=== PATIENT | female | born 1950 ===

== ENCOUNTER 2020-05-15 06:30 | Day surgery (SDC) | payer OTHER | END 2020-05-15 10:10 | disposition home or self-care (01) | LOC: AMB-ENDOS 06:30 → ADM 12:30 → AMB-ENDOS 12:30 | PROVIDERS: ATTEND Surgery | DX: K62.89 Other specified diseases of anus and rectum (principal); Z20.828 Contact with and (suspected) exposure to other viral communicable diseases; Z12.11 Encounter for screening for malignant neoplasm of colon ==